=== PATIENT | female | born 1970 | race Caucasian/White ===

== ENCOUNTER 2020-06-19 16:14 | Observation (INO) | payer OTHER ==
[2020-06-19] MEDS ORDERED: Zofran 4 MG/2 ML VIAL IV ONE ×2 (16:26→18:15)
[2020-06-19] MEDS ORDERED: Sodium Chloride 0.9% 1000 ML 1,000 ML IV STA ×3 (16:26→18:45)
[2020-06-19] MEDS ORDERED: Sodium Chloride 0.9% 1000 ML 2,000 ML ONE (16:32)
[2020-06-19] MEDS ORDERED: Zofran 4 MG/2 ML VIAL ONE ×2 (16:32→18:16)
[2020-06-19 16:52] LABS: Absolute Neutrophil Ct (ANC) 2.31 (1.4-6.9); BASOPHIL % 0.3 % (0.0-0.4); Basophil (Absolute #) 0.01 (0-0.4); Eosinophil % 0.3 % (0.00-5.0); Eosinophil (Absolute #) 0.01 (0-0.5); Hemoglobin 14.4 gm/dl (12.0-16.0); Lymphocytes % 22.4 % (24.0-44.0); Mean Cell Volume 88.1 fl (78-100); Mean Corpuscular Hemoglobin 30.2 pg (26-32); Mean Corpuscular Hgb Concent. 34.3 g/dl (32-36); Mean Platelet Volume 10.1 fl (7.5-11.0); Monocyte (Absolute #) 0.44 (0.0-1.3); Monocytes % 12.3 % (0.0-12.0); Neutrophil % 64.7 % (36.0-66.0); Platelet Count 170 K/mm3 (150-450); Red Blood Count 4.77 M/mm3 (4.1-5.4); Red Cell Distribution Width 13.5 % (11.5-14.0); White Blood Count 3.6 K/mm3 (4.0-10.5)
--- NOTE | 2020-06-19 17:01 | XRAY ---
Indication: Short of breath. Suspect Covid 19. Comparison: September 20, 2014. Portable chest remains clear. Heart is not enlarged. Bony thorax intact. No new/acute findings.
[2020-06-19 17:06] LABS: ALBUMIN 4.5 g/dL (3.5-5.0); ALKALINE PHOSPHATASE 60 U/L (38-126); ANION GAP 13.9 MEQ/L (5-15); BLOOD UREA NITROGEN 12 mg/dL (7-17); CHLORIDE 97 mmol/L (98-107); Calcium 8.8 mg/dL (8.4-10.2); Carbon Dioxide 30 mmol/L (22-30); Creatinine 1 0.81 mg/dL (0.52-1.04); EST GLOMERULAR FILTRATION RATE > 60.0 ML/MIN; Glucose 105 mg/dL (74-106); Potassium 3.1 mmol/L (3.5-5.1); SGOT/AST 56 U/L (14-36); SGPT/ALT 74 U/L (0-35); SODIUM 137 mmol/L (137-145)
[2020-06-19] MEDS ORDERED: TORAdol 30 mg Injection IV ONE (17:16)
[2020-06-19] MEDS ORDERED: TORAdol 30 mg Injection ONE (17:20)
--- NOTE | 2020-06-19 17:46 | ERPHSYRPT ---
- History of Present Illness Source: patient Exam Limitations: no limitations Patient Subjective Stated Complaint: Diarrhea Triage Nursing Assessment: Patient ambulated back to ED and transferred self to bed. Patient COVID positive. Patient started showing symptoms on 06/14/2020 and was tested on 06/16/2020. Patient complains of body aches, headaches, fatigue, low grade temp, cough. Patient complains of constant aching pain to hayden lower legs and head 5/10. Patient complains of N/V and diarrhea. Lungs clear a/p hayden. patient denies SOB. Physician History: 49 yo wf who tested + for CV19 on 06/16/20 presents w N/V/D/mild nonproductive cough/fever/myalgias/arthralgias/BERMUDEZ. Pt denies CP/dysuria/hematuria/melena/hematochezia/ST. Timing/Duration: other (06/16/20) Cough Quality/Degree: mild, dry cough Possible Cause: no prior episodes Modifying Factors: Improves With: coughing Associated Symptoms: fever, chills, cough, headache, muscle aches, nasal congestion, nasal drainage, No chest pain/soreness, No dizziness, No earache, No facial pain, No lightheadedness, No shortness of breath, No sinus infection, No sore throat, No wheezing Allergies/Adverse Reactions: cefprozil [From Cefzil] Allergy (Verified 06/19/20 16:17) penicillin G Allergy (Verified 06/19/20 16:17) Penicillins Allergy (Verified 06/19/20 16:17) prochlorperazine [From Compazine] Allergy (Verified 06/19/20 16:17) prochlorperazine edisylate [From Compazine] Allergy (Verified 06/19/20 16:17) prochlorperazine maleate [From Compazine] Allergy (Verified 06/19/20 16:17) Sulfa (Sulfonamide Antibiotics) [Sulfa(Sulfonamide Antibiotics)] Allergy (Verified 06/19/20 16:17) Home Medications: Alprazolam 0.25 mg [xanAX 0.25 MG] 0.25 mg PO HS PRN PRN 09/20/14 [History] Aspirin 81 gm Chew [Baby Aspirin 81 mg Chew] 81 mg PO HS 09/20/14 [History] Omeprazole Magnesium [Prilosec Otc] 40 mg PO DAILY 09/20/14 [History] Nebivolol HCl [Bystolic] 10 mg PO HS 04/06/15 [History] Chlorthalidone 25 mg PO DAILY 06/19/20 [History] Famotidine [Pepcid AC] 40 mg PO HS 06/19/20 [History] Hx Tetanus, Diphtheria Vaccination/Date Given: Yes Hx Influenza Vaccination/Date Given: Yes Hx Pneumococcal Vaccination/Date Given: No Immunizations Up to Date: Yes Travel Risk - International Travel Have you traveled outside of the country in past 3 weeks: No - Coronavirus Screening Are you exhibiting any of the following symptoms?: Yes Symptoms: Fever, Cough: New Onset, Headaches/Body Aches/Fatigue Close contact with a COVID-19 positive Pt in past 14-21 Days: Yes - Review of Systems Constitutional: Fever, Chills, Fatigue, Lethargy, Weakness Eyes: No Symptoms Ears, Nose, & Throat: No Symptoms Respiratory: Cough, Dyspnea, Dyspnea on Exertion (BLACK[place]) Cardiac: No Symptoms Abdominal/Gastrointestinal: Nausea, Vomiting, Diarrhea, Appetite Changes, No Hematemesis, No Hematochezia, No Melena, No Dysphagia Genitourinary Symptoms: No Symptoms Musculoskeletal: No Symptoms, Arthralgias, Myalgias Skin: No Symptoms Neurological: No Symptoms, Headache Psychological: No Symptoms Endocrine: No Symptoms Hematologic/Lymphatic: No Symptoms Immunological/Allergic: No Symptoms - Past Medical History Pertinent Past Medical History: Yes Neurological History: No Pertinent History ENT History: No Pertinent History Cardiac History: Hypertension Respiratory History: No Pertinent History Endocrine Medical History: No Pertinent History Musculoskeletal History: No Pertinent History GI Medical History: Irritable Bowel History: No Pertinent History Psycho-Social History: No Pertinent History Female Reproductive Disorders: No Pertinent History - Past Surgical History Past Surgical History: Yes Neuro Surgical History: No Pertinent History Cardiac: No Pertinent History Respiratory: No Pertinent History Gastrointestinal: Cholecystectomy Musculoskeletal: No Pertinent History Female Surgical History: Section, Tubal Ligation, Other Other Surgical History: d/cx2, 2 groshong placement,leep procedure x2 - Social History Smoking Status: Never smoker Exposure to second hand smoke: No Drug Use: none Patient Lives Alone: No Significant Family History: no pertinent family hx - Nursing Vital Signs Nursing Vital Signs: Initial Vital Signs Temperature 98.6 F 06/19/20 16:21 Pulse Rate 101 H 06/19/20 16:21 Respiratory Rate 18 06/19/20 16:21 Blood Pressure 119/90 06/19/20 16:21 O2 Sat by Pulse Oximetry 96 06/19/20 16:21 Pain Scale Pain Intensity 3 - Physical Exam General Appearance: no apparent distress (Ill appearing) Eye Exam: PERRL/EOMI, eyes nml inspection Ears, Nose, Throat Exam: normal ENT inspection, TMs normal, pharynx normal, dry mucous membranes, pharyngeal erythema Neck Exam: normal inspection, supple, full range of motion, No meningismus, No mass, No Brudzinski, No Kernig's Respiratory Exam: normal breath sounds, lungs clear, airway intact, No r espiratory distress Cardiovascular Exam: tachycardia (Mild), No murmur Gastrointestinal/Abdomen Exam: soft, normal bowel sounds, No tenderness, No dis tention, No mass Back Exam: normal inspection, normal range of motion, No CVA tenderness Extremity Exam: normal inspection, normal range of motion Neurologic Exam: alert, oriented x 3, cooperative, stereo compiler II-XII nml as tested, n ormal mood/affect, nml station & gait, sensation nml, No motor deficits, No sensory deficit Skin Exam: normal color, warm, dry Lymphatic Exam: No adenopathy SpO2 Interpretation: normal SpO2: 97 O2 Delivery: Room Air - Course Nursing assessment & vital signs reviewed: Yes - Radiology Exams Chest X-ray Interpretation: Discussed w/ radiologist (NAD) Ordered Tests: Active Orders 24 hr Category Date Time Status IV Insertion STAT Care 06/19/20 16:26 Completed Clear Liquid Diet 06/20/20 Breakfast Active CHEST 1 VIEW (PORTABLE) Stat Exams 06/19/20 16:27 Completed CBC AM.LAB Lab 06/20/20 04:00 Ordered CBC W DIFF Stat Lab 06/19/20 16:30 Completed CMP AM.LAB Lab 06/20/20 04:00 Ordered CMP Stat Lab 06/19/20 16:30 Completed CULTURE,URINE Stat Lab 06/19/20 19:30 Received D-DIMER QUANTITATIVE AM.LAB Lab 06/20/20 04:00 Ordered D-DIMER QUANTITATIVE Stat Lab 06/19/20 16:35 Completed Lactic Acid Stat Lab 06/19/20 16:48 Completed UA W/RFX UR CULTURE Stat Lab 06/19/20 19:30 Completed Transfer Order Routine Transfer 06/19/20 Completed Medication Summary Generic Name Dose Route Start Last Admin Trade Name Rafi PRN Reason Stop Dose Admin Acetaminophen 500 mg 06/19/20 20:25 Tylenol Extra Strength 500 Mg PO 07/19/20 20:24 Q4HPRN PRN PAIN AND/OR FEVER Dexamethasone Sodium Phosphate 4 mg 06/19/20 22:00 Decadron 4 Mg Inj IV 07/19/20 21:59 BID JAXON Enoxaparin Sodium 60 mg 06/20/20 10:00 Enoxaparin Sodium SQ 07/20/20 09:59 DAILY JAXON Famotidine 20 mg 06/19/20 22:00 Pepcid 20 Mg Vial IV 07/19/20 21:59 Q12HT JAXON Potassium Chloride/Sodium Chloride 1,000 mls @ 150 mls/hr 06/19/20 20:30 Sodium Chloride 0.9% W/ 40 Meq Kcl 1000ml IV 07/19/20 20:29 .Q6H40M JAXON Remdesivir 100 mg/ Sodium 100 mls @ 100 mls/hr 06/20/20 22:00 Chloride IV 06/23/20 22:59 Q24H JAXON Remdesivir 200 mg/ Sodium 250 mls @ 125 mls/hr 06/19/20 22:00 Chloride IV 06/19/20 23:59 ONCE ONE Lorazepam 1 mg 06/19/20 20:27 Ativan 1 Mg PO 07/19/20 20:26 Q4H PRN PRN ANXIETY Ondansetron HCl 4 mg 06/19/20 20:29 Zofran 4 Mg/2 Ml Vial IV 07/19/20 20:25 Q4H PRN PRN NAUSEA/VOMITING Discontinued Medications Generic Name Dose Route Start Last Admin Trade Name Rafi PRN Reason Stop Dose Admin Dexamethasone Sodium Phosphate 10 mg 06/19/20 18:14 06/19/20 18:18 Decadron 10mg Inj. IV 06/19/20 18:15 10 mg STAT ONE Administration Dexamethasone Sodium Phosphate Confirm 06/19/20 18:17 Decadron 10mg Inj. Administered 06/19/20 18:18 Dose 10 mg .ROUTE .STK-MED ONE Sodium Chloride 1,000 mls @ 999 mls/hr 06/19/20 16:26 06/19/20 17:41 Sodium Chloride 0.9% 1000 Ml IV 06/19/20 17:26 Infused .Q1H1M STA Infusion Sodium Chloride 1,000 mls @ 999 mls/hr 06/19/20 16:28 06/19/20 17:41 Sodium Chloride 0.9% 1000 Ml IV 06/19/20 17:28 Infused .Q1H1M STA Infusion Sodium Chloride Confirm 06/19/20 16:32 Sodium Chloride 0.9% 1000 Ml Administered 06/19/20 16:33 Dose 2,000 mls @ ud .ROUTE .STK-MED ONE Sodium Chloride 1,000 mls @ 999 mls/hr 06/19/20 18:45 06/19/20 18:52 Sodium Chloride 0.9% 1000 Ml IV 06/19/20 19:45 999 mls/hr .Q1H1M STA Administration Sodium Chloride Confirm 06/19/20 18:50 Sodium Chloride 0.9% 1000 Ml Administered 06/19/20 18:51 Dose 1,000 mls @ ud .ROUTE .STK-MED ONE Sodium Chloride 1,000 mls @ 150 mls/hr 06/19/20 19:45 Sodium Chloride 0.9% 1000 Ml IV 07/19/20 19:44 .Q6H40M JAXON Remdesivir 100 mg/ Sodium 100 mls @ 100 mls/hr 06/19/20 19:45 Chloride IV 06/22/20 20:44 Q24H JAXON Remdesivir 200 mg/ Sodium 250 mls @ 125 mls/hr 06/19/20 19:34 Chloride IV 06/19/20 21:33 ONCE ONE Ketorolac Tromethamine 30 mg 06/19/20 17:16 06/19/20 17:21 Toradol 30 Mg Injection IV 06/19/20 17:17 30 mg STAT ONE Administration Ketorolac Tromethamine Confirm 06/19/20 17:20 Toradol 30 Mg Injection Administered 06/19/20 17:21 Dose 30 mg .ROUTE .STK-MED ONE Ondansetron HCl 4 mg 06/19/20 16:26 06/19/20 16:33 Zofran 4 Mg/2 Ml Vial IV 06/19/20 16:27 4 mg STAT ONE Administration Ondansetron HCl Confirm 06/19/20 16:32 Zofran 4 Mg/2 Ml Vial Administered 06/19/20 16:33 Dose 4 mg .ROUTE .STK-MED ONE Ondansetron HCl 4 mg 06/19/20 18:15 06/19/20 18:18 Zofran 4 Mg/2 Ml Vial IV 06/19/20 18:16 4 mg STAT ONE Administration Ondansetron HCl Confirm 06/19/20 18:16 Zofran 4 Mg/2 Ml Vial Administered 06/19/20 18:17 Dose 4 mg .ROUTE .STK-MED ONE Ondansetron HCl 4 mg 06/19/20 19:31 Zofran 4 Mg/2 Ml Vial IV 07/19/20 19:30 Q6H PRN PRN NAUSEA/VOMITING Lab/Rad Data: Laboratory Result Diagrams 06/19/20 16:30 06/19/20 16:30 Laboratory Results 06/19/20 06/19/20 06/19/20 Range/Units 19:30 16:48 16:35 WBC (4.0-10.5) K/mm3 RBC (4.1-5.4) M/mm3 Hgb (12.0-16.0) gm/dl Hct (35-47) % MCV (78-100) fl MCH (26-32) pg MCHC (32-36) g/dl RDW (11.5-14.0) % Plt Count (150-450) K/mm3 MPV (7.5-11.0) fl Gran % (36.0-66.0) % Eos # (Auto) (0-0.5) Absolute Lymphs (auto) (1.0-4.6) Absolute Monos (auto) (0.0-1.3) Lymphocytes % (24.0-44.0) % Monocytes % (0.0-12.0) % Eosinophils % (0.00-5.0) % Basophils % (0.0-0.4) % Absolute Granulocytes (1.4-6.9) Basophils # (0-0.4) D-Dimer 541 H* (215-500) ng/mL Sodium (137-145) mmol/L Potassium (3.5-5.1) mmol/L Chloride (98-107) mmol/L Carbon Dioxide (22-30) mmol/L Anion Gap (5-15) MEQ/L BUN (7-17) mg/dL Creatinine (0.52-1.04) mg/dL Estimated GFR ML/MIN Glucose (74-106) mg/dL Lactic Acid 1.5 (0.4-2.0) Calcium (8.4-10.2) mg/dL Total Bilirubin (0.2-1.3) mg/dL AST (14-36) U/L ALT (0-35) U/L Alkaline Phosphatase (38-126) U/L Serum Total Protein (6.3-8.2) g/dL Albumin (3.5-5.0) g/dL Urine Color YELLOW (YELLOW) Urine Appearance SLIGHTLY CLOUDY (CLEAR) Urine pH 5.0 (5-6) Ur Specific [place] 1.024 (1.005-1.025) Urine Protein 30 (Negative) Urine Ketones SMALL (NEGATIVE) Urine Blood NEGATIVE (0-5) Tray/ul Urine Nitrite NEGATIVE (NEGATIVE) Urine Bilirubin NEGATIVE (NEGATIVE) Urine Urobilinogen NEGATIVE (0-1) mg/dL Ur Leukocyte Esterase NEGATIVE (NEGATIVE) Urine WBC (Auto) 3-5 (0-5) /HPF Urine RBC (Auto) NONE (0-2) /HPF U Epithel Cells (Auto) RARE (FEW) /HPF Urine Bacteria (Auto) FEW (NEGATIVE) /HPF Urine Mucus (Auto) SLIGHT (NEGATIVE) /HPF Urine Culture Reflexed YES (NO) Urine Glucose NEGATIVE (NEGATIVE) mg/dL 06/19/20 06/19/20 Range/Units 16:30 16:30 WBC 3.6 L (4.0-10.5) K/mm3 RBC 4.77 (4.1-5.4) M/mm3 Hgb 14.4 (12.0-16.0) gm/dl Hct 42.0 (35-47) % MCV 88.1 (78-100) fl MCH 30.2 (26-32) pg MCHC 34.3 (32-36) g/dl RDW 13.5 (11.5-14.0) % Plt Count 170 (150-450) K/mm3 MPV 10.1 (7.5-11.0) fl Gran % 64.7 (36.0-66.0) % Eos # (Auto) 0.01 (0-0.5) Absolute Lymphs (auto) 0.80 L (1.0-4.6) Absolute Monos (auto) 0.44 (0.0-1.3) Lymphocytes % 22.4 L (24.0-44.0) % Monocytes % 12.3 H (0.0-12.0) % Eosinophils % 0.3 (0.00-5.0) % Basophils % 0.3 (0.0-0.4) % Absolute Granulocytes 2.31 (1.4-6.9) Basophils # 0.01 (0-0.4) D-Dimer (215-500) ng/mL Sodium 137 (137-145) mmol/L Potassium 3.1 L (3.5-5.1) mmol/L Chloride 97 L (98-107) mmol/L Carbon Dioxide 30 (22-30) mmol/L Anion Gap 13.9 (5-15) MEQ/L BUN 12 (7-17) mg/dL Creatinine 0.81 (0.52-1.04) mg/dL Estimated GFR > 60.0 ML/MIN Glucose 105 (74-106) mg/dL Lactic Acid (0.4-2.0) Calcium 8.8 (8.4-10.2) mg/dL Total Bilirubin 0.60 (0.2-1.3) mg/dL AST 56 H (14-36) U/L ALT 74 H (0-35) U/L Alkaline Phosphatase 60 (38-126) U/L Serum Total Protein 8.0 (6.3-8.2) g/dL Albumin 4.5 (3.5-5.0) g/dL Urine Color (YELLOW) Urine Appearance (CLEAR) Urine pH (5-6) Ur Specific [place] (1.005-1.025) Urine Protein (Negative) Urine Ketones (NEGATIVE) Urine Blood (0-5) Tray/ul Urine Nitrite (NEGATIVE) Urine Bilirubin (NEGATIVE) Urine Urobilinogen (0-1) mg/dL Ur Leukocyte Esterase (NEGATIVE) Urine WBC (Auto) (0-5) /HPF Urine RBC (Auto) (0-2) /HPF U Epithel Cells (Auto) (FEW) /HPF Urine Bacteria (Auto) (NEGATIVE) /HPF Urine Mucus (Auto) (NEGATIVE) /HPF Urine Culture Reflexed (NO) Urine Glucose (NEGATIVE) mg/dL - Progress Progress: unchanged Progress Note: 06/19/20 19:[address] Mathew 06/19/20 20:40 3L NS bolus/4mg IV Zofran x2/10mg IV Decadron Pt w minimal improvement w tx and still unable to hold down sig fluids, so admitted per Dr. Mathew Discussed with Dr.: Other (Priyanka) Will see patient in: hospital (observation) - Departure Departure Disposition: Observation Clinical Impression: COVID-19 Condition: Stable Critical Care Time: No
[2020-06-19] MEDS ORDERED: DECADRON 10MG INJ. IV ONE (18:14)
[2020-06-19] MEDS ORDERED: DECADRON 10MG INJ. ONE (18:17)
[2020-06-19] MEDS ORDERED: Sodium Chloride 0.9% 1000 ML 1,000 ML ONE (18:50)
[2020-06-19] MEDS ORDERED: Zofran 4 MG/2 ML VIAL IV PRN (19:31)
[2020-06-19] MEDS ORDERED: REMDESIVIR 200 MG in Sodium Chloride 0.9% 250 ML 250 ML IV ONE ×2 (19:34→22:00)
[2020-06-19 19:44] LABS: Appearance SLIGHTLY CLOUDY (CLEAR); Bacteria FEW /HPF (NEGATIVE); Bilirubin NEGATIVE (NEGATIVE); Blood NEGATIVE Ery/ul (0-5); Epithelial Cells RARE /HPF (FEW); Glucose NEGATIVE (NEGATIVE); Ketones SMALL (NEGATIVE); Leukocyte Esterase NEGATIVE (NEGATIVE); Mucus SLIGHT /HPF (NEGATIVE); Nitrite NEGATIVE (NEGATIVE); Protein,Urine Dip 30 (Negative); Specific Gravity 1.024 (1.005-1.025); Urobilinogen NEGATIVE mg/dL (0-1)
[2020-06-19] MEDS ORDERED: Sodium Chloride 0.9% 1000 ML 1,000 ML IV SCH (19:45)
[2020-06-19] MEDS ORDERED: REMDESIVIR 100 MG in Sodium Chloride 0.9% 100 ML IVPB 100 ML IV SCH (19:45)
[2020-06-19] MEDS ORDERED: TYLENOL EXTRA STRENGTH 500 MG PO PRN (20:25)
[2020-06-19] MEDS ORDERED: Ativan 1 MG PO PRN (20:27)
[2020-06-19] MEDS ORDERED: Sodium Chloride 0.9% 250 ML 250 ML IV ONE (20:40)
[2020-06-19] MEDS ORDERED: REMDESIVIR IV ONE (20:41)
[2020-06-19] MEDS ORDERED: POTASSIUM CHLORIDE 20 mEq IN WATER 100ML 20 MEQ/100 ML BAG IV SCH (20:45)
[2020-06-19] MEDS: SODIUM CHLORIDE 0.9% W/ 40 mEq KCL 1000ML 1,000 ML IV SCH (20:51)
[2020-06-19] MEDS: Decadron 4 MG INJ IV SCH ×2 (22:39→23:10)
[2020-06-19] MEDS: Pepcid 20 MG VIAL IV SCH (22:39)
[2020-06-20] MEDS: SODIUM CHLORIDE 0.9% W/ 40 mEq KCL 1000ML 1,000 ML IV SCH (05:31)
[2020-06-20] MEDS: Zofran 4 MG/2 ML VIAL IV PRN ×2 (05:32→09:16)
[2020-06-20 06:39] LABS: Hematocrit 34.6 % (35-47); Hemoglobin 11.9 gm/dl (12.0-16.0); Mean Cell Volume 89.9 fl (78-100); Mean Corpuscular Hemoglobin 30.9 pg (26-32); Mean Corpuscular Hgb Concent. 34.4 g/dl (32-36); Mean Platelet Volume 10.2 fl (7.5-11.0); Platelet Count 139 K/mm3 (150-450); Red Blood Count 3.85 M/mm3 (4.1-5.4); Red Cell Distribution Width 13.1 % (11.5-14.0); White Blood Count 2.2 K/mm3 (4.0-10.5)
[2020-06-20 06:49] LABS: INR 1.21 (0.8-3.0); PROTIME 13.7 SECONDS (9.95-12.35)
[2020-06-20 06:52] LABS: ALBUMIN 3.4 g/dL (3.5-5.0); ALKALINE PHOSPHATASE 37 U/L (38-126); ANION GAP 10.8 MEQ/L (5-15); BLOOD UREA NITROGEN 10 mg/dL (7-17); CHLORIDE 106 mmol/L (98-107); Calcium 7.1 mg/dL (8.4-10.2); Carbon Dioxide 24 mmol/L (22-30); Creatinine 1 0.63 mg/dL (0.52-1.04); EST GLOMERULAR FILTRATION RATE > 60.0 ML/MIN; Glucose 124 mg/dL (74-106); Potassium 3.7 mmol/L (3.5-5.1); SGOT/AST 34 U/L (14-36); SGPT/ALT 48 U/L (0-35); SODIUM 138 mmol/L (137-145); Total Protein 6.1 g/dL (6.3-8.2)
[2020-06-20] MEDS: Sodium Chloride 0.9% W/ 20 mEq KCl/LITER 1,000 ML IV SCH ×2 (10:12→20:00)
[2020-06-20] MEDS: ENOXAPARIN SODIUM SQ SCH (10:12)
[2020-06-20] MEDS: Pepcid 20 MG VIAL IV SCH (10:12)
[2020-06-20] MEDS: Decadron 4 MG INJ IV SCH ×2 (10:12→21:34)
[2020-06-20] MEDS ORDERED: xanAX 0.25 MG PO PRN (10:18)
[2020-06-20] MEDS: Tussionex Pennkinetic Susp PO SCH ×2 (11:30→21:34)
[2020-06-20] MEDS: NEURONTIN 300 MG PO SCH ×2 (11:30→21:34)
[2020-06-20] MEDS: NON-FORMULARY ITEM PO SCH (11:31)
--- NOTE | 2020-06-20 15:06 | HP ---
CHIEF COMPLAINT: Abdominal pain, vomiting, diarrhea, nausea. COVID positive since 06/16/2020. HISTORY OF PRESENT ILLNESS: The patient stated she started feeling bad on 06/14/2020 and was tested on 06/16/2020. 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 She complained of body aches, headaches, fatigue, low grade fever, sweats and chills, aching of the legs and hand 5 over 10. Today, she vomited twice and had several bouts of diarrhea. MEDICATIONS: Xanax 0.25 h.s. PRN, aspirin 81 q.d., Prilosec 20 q.d., Bystolic 10 q.d. ALLERGIES: PENICILLIN. COMPAZINE. PHENERGAN (RESTLESS LEGS). SULFA. PAST MEDICAL HISTORY: Hypertension. PAST SURGICAL HISTORY: Cholecystectomy. Two sections. REVIEW OF SYSTEMS: HEENT: No problems hearing or seeing. Denies change in taste. CONSTITUTIONAL: No fever or chills. Fatigue, leg aches, lethargy, weakness. RESPIRATORY: Frequent cough, not short of breath. CVS: No chest pain or shortness of breath. ABDOMEN: Cramping, nausea, aching, vomiting. : No problems urinating but has not urinated much today. MUSCULOSKELETAL: Aching all over especially the legs. NEUROLOGIC: No problems except for headaches. No neuropathy. ENDOCRINE: No diabetes. No hyperlipidemia. PHYSICAL EXAMINATION: The patient is alert, orientated, looks worn out, tired and dehydrated. VITAL SIGNS: Temperature 98F, pulse 100, respirations 18, blood pressure 125/80. O2 saturation on room air 96%. HEENT: Pupils equal and reactive to light. Dry mucosal membranes. NECK: Supple without adenopathy. CHEST: Clear. CVS: No murmurs or gallops. ABDOMEN: Distended. No tenderness. Normal bowel sounds. EXTREMITIES: Fair pulses. No edema. IMPRESSION: The patient is COVID positive now for fourth day with dehydration probably close to 10%, hypokalemia. PLAN: The patient will be started on IV fluids with potassium replacement, nausea medication, pain medication, Decadron and Remdesivir. PROGNOSIS: Good.
[2020-06-20] MEDS: REMDESIVIR 100 MG in Sodium Chloride 0.9% 100 ML IVPB 100 ML IV SCH (16:20)
[2020-06-20] MEDS ORDERED: Pepcid 20 MG PO SCH (22:00)
[2020-06-20] MEDS ORDERED: Bystolic 5 MG PO SCH (22:00)
[2020-06-20] MEDS ORDERED: Protonix 40MG Tablet PO SCH (22:00)
[2020-06-20] MEDS ORDERED: Ativan 1 MG PO SCH (22:00)
[2020-06-20] MEDS ORDERED: OMEPRAZOLE MAGNESIUM 40 MG PO SCH (22:00)
[2020-06-21] MEDS: Sodium Chloride 0.9% W/ 20 mEq KCl/LITER 1,000 ML IV SCH (05:35)
[2020-06-21 06:09] LABS: ALBUMIN 3.2 g/dL (3.5-5.0); ALKALINE PHOSPHATASE 35 U/L (38-126); ANION GAP 8.8 MEQ/L (5-15); BLOOD UREA NITROGEN 9 mg/dL (7-17); CHLORIDE 106 mmol/L (98-107); Calcium 7.4 mg/dL (8.4-10.2); Carbon Dioxide 25 mmol/L (22-30); Creatinine 1 0.58 mg/dL (0.52-1.04); EST GLOMERULAR FILTRATION RATE > 60.0 ML/MIN; Glucose 130 mg/dL (74-106); Potassium 3.8 mmol/L (3.5-5.1); SGOT/AST 40 U/L (14-36); SGPT/ALT 42 U/L (0-35); SODIUM 136 mmol/L (137-145)
[2020-06-21 06:34] LABS: INR 1.28 (0.8-3.0); PROTIME 14.5 SECONDS (9.95-12.35)
[2020-06-21] MEDS: Zofran 4 MG/2 ML VIAL IV PRN ×2 (08:39→17:53)
[2020-06-21] MEDS ORDERED: NON-FORMULARY ITEM (Chlorthalidone [Chlorthalidone] 25 MG) PO SCH (10:00)
[2020-06-21] MEDS: Decadron 4 MG INJ IV SCH (10:22)
[2020-06-21] MEDS: NON-FORMULARY ITEM PO SCH (10:24)
[2020-06-21] MEDS: NEURONTIN 300 MG PO SCH (11:08)
[2020-06-21] MEDS: Tussionex Pennkinetic Susp PO SCH (11:08)
[2020-06-21] MEDS: ENOXAPARIN SODIUM SQ SCH (11:09)
[2020-06-21] MEDS ORDERED: QUESTRAN Light 4 GM Packet PO SCH (12:00)
[2020-06-21] MEDS: REMDESIVIR 100 MG in Sodium Chloride 0.9% 100 ML IVPB 100 ML IV SCH (16:29)
[2020-06-21 17:42] VITALS: BP 133/79; O2SAT 93
[2020-06-21 17:47] VITALS: PULSE 81
== END 2020-06-21 18:57 | disposition home or self-care (01) ==
LOC: ED 16:14 → MED SURG 19:59
PROVIDERS: ADMIT Family Medicine; ATTEND Family Medicine
DX: U07.1 COVID-19 (principal); K52.9 Noninfective gastroenteritis and colitis, unspecified; E86.0 Dehydration; R51.9 Headache, unspecified; R53.83 Other fatigue; Z79.899 Other long term (current) drug therapy; I10 Essential (primary) hypertension; E87.6 Hypokalemia
CPT/HCPCS: 36000; 36415; 71045; 80053; 81001; 83605; 85025; 85027; 85379; 85610; 87086; 93268; 94762; 96360; 96361; 96374; 96375; 96376; 99285; G0378; J1100; J1650; J1885; J2405; A9270-GY

== ENCOUNTER 2021-06-05 13:59 | Emergency (ER) | payer OTHER ==
[2021-06-05] MEDS: HYDROCODONE-ACETAMIN 2.5-108/5 ML SOLUTION PO STA (14:00)
[2021-06-05] MEDS ORDERED: Zofran 4 MG/2 ML VIAL ONE (14:24)
[2021-06-05] MEDS ORDERED: solu-MEDROL ONE (14:24)
[2021-06-05] MEDS ORDERED: Sodium Chloride 0.9% 1000 ML 1,000 ML ONE (14:24)
[2021-06-05] MEDS ORDERED: HYDROCODONE-ACETAMIN 2.5-108/5 ML SOLUTION ONE (14:24)
[2021-06-05] MEDS: Zofran 4 MG/2 ML VIAL IV ONE (14:32)
[2021-06-05] MEDS: solu-MEDROL 125 MG, Sterile H2O 10 ml 2 ML IV ONE ×2 (14:32)
[2021-06-05] MEDS: Sodium Chloride 0.9% 1000 ML 1,000 ML IV STA (14:32)
[2021-06-05 14:43] LABS: Absolute Neutrophil Ct (ANC) 11.84 (1.4-6.9); BASOPHIL % 0.1 % (0.0-0.4); Basophil (Absolute #) 0.02 (0-0.4); Eosinophil % 0.1 % (0.00-5.0); Eosinophil (Absolute #) 0.01 (0-0.5); Hematocrit 41.6 % (35-47); Hemoglobin 14.1 gm/dl (12.0-16.0); Lymphocyte (Absolute #) 0.71 (1.0-4.6); Lymphocytes % 5.3 % (24.0-44.0); Mean Cell Volume 87.6 fl (78-100); Mean Corpuscular Hemoglobin 29.7 pg (26-32); Mean Corpuscular Hgb Concent. 33.9 g/dl (32-36); Mean Platelet Volume 10.4 fl (7.5-11.0); Monocyte (Absolute #) 0.91 (0.0-1.3); Monocytes % 6.7 % (0.0-12.0); Neutrophil % 87.8 % (36.0-66.0); Platelet Count 211 K/mm3 (150-450); Red Blood Count 4.75 M/mm3 (4.1-5.4); Red Cell Distribution Width 13.4 % (11.5-14.0); White Blood Count 13.5 K/mm3 (4.0-10.5)
[2021-06-05 14:51] LABS: Appearance CLOUDY (CLEAR); Bacteria FEW /HPF (NEGATIVE); Bilirubin SMALL (NEGATIVE); Blood MODERATE Ery/ul (0-5); Epithelial Cells RARE /HPF (FEW); Glucose 50 mg/dL (NEGATIVE); Ketones SMALL (NEGATIVE); Leukocyte Esterase NEGATIVE (NEGATIVE); Mucus SLIGHT /HPF (NEGATIVE); Nitrite NEGATIVE (NEGATIVE); Protein,Urine Dip 100 (Negative); Specific Gravity 1.031 (1.005-1.025); Urobilinogen 4 mg/dL (0-1)
--- NOTE | 2021-06-05 14:53 | XRAY ---
Indication: Fever and cough. Comparison: June 19, 2020. Portable chest demonstrates new right lower lung airspace disease without consolidation/large effusion. Remaining heart, left lung, and bony thorax normal..
[2021-06-05 14:57] LABS: ALBUMIN 4.1 g/dL (3.5-5.0); ALKALINE PHOSPHATASE 83 U/L (38-126); BLOOD UREA NITROGEN 12 mg/dL (7-17); CHLORIDE 100 mmol/L (98-107); Calcium 8.9 mg/dL (8.4-10.2); Carbon Dioxide 27 mmol/L (22-30); Creatinine 1 0.94 mg/dL (0.52-1.04); EST GLOMERULAR FILTRATION RATE > 60.0 ML/MIN; Glucose 112 mg/dL (74-106); MAGNESIUM 1.7 mg/dL (1.6-2.3); Potassium 3.6 mmol/L (3.5-5.1); SGOT/AST 40 U/L (14-36); SGPT/ALT 44 U/L (0-35); SODIUM 138 mmol/L (137-145); Total Protein 7.1 g/dL (6.3-8.2)
--- NOTE | 2021-06-05 15:07 | ERPHSYRPT ---
- History of Present Illness Time Seen by Provider: 06/05/21 14:36 Source: patient Exam Limitations: no limitations Patient Subjective Stated Complaint: Pt states "I have been coughing and had horrible body aches since the and I have taken tesselon pearls and tussenex and nothing is working. I am coughing so much my head is killing me and I am vomiting. I cannot take it anymore." Triage Nursing Assessment: PT presented alert and oriented X 3, skin pwd. Pt ambulates with an upright steady gait, able to speak in clear full sentences pt has persistant cough. PT cannot stop coughing. Physician History: 50 years old female presented in the ER with chief complaint of almost 2-week history of dry cough, congestion, generalized body ache fatigue and tiredness. She has tried multiple medication with no relief. Having coughing spells without shortness of breath. Has negative COVID-19 done twice. Subjective f eeling of fever and chills. Denies any chest pain but soreness because of repeated coughing. Timing/Duration: day(s) (12), constant, gradual onset, worse Cough Quality/Degree: severe, dry cough Possible Cause: unknown cause Modifying Factors: Worsens With: coughing Associated Symptoms: fever, chills, chest pain/soreness, cough, headache, muscle aches, sore throat, No shortness of breath Allergies/Adverse Reactions: prochlorperazine edisylate [From Compazine] Allergy (Severe, Verified 06/19/20 21:48) Tardive Dyskinesia cefprozil [From Cefzil] Allergy (Mild, Verified 06/19/20 21:48) Hives penicillin G Allergy (Mild, Verified 06/19/20 21:48) Hives Sulfa (Sulfonamide Antibiotics) [Sulfa(Sulfonamide Antibiotics)] Allergy (Mild, Verified 06/19/20 21:48) Hives Penicillins Allergy (Verified 06/19/20 16:17) prochlorperazine [From Compazine] Allergy (Verified 06/19/20 16:17) prochlorperazine maleate [From Compazine] Allergy (Verified 06/19/20 16:17) Home Medications: ALPRAZolam 0.25 MG [xanAX 0.25 MG] 0.25 mg PO HS PRN PRN 09/20/14 [History] Aspirin 81 gm Chew [Baby Aspirin 81 mg Chew] 81 mg PO HS 09/20/14 [History] Omeprazole Magnesium [Prilosec Otc] 40 mg PO HS 09/20/14 [History] Nebivolol HCl [Bystolic] 10 mg PO HS 04/06/15 [History] Chlorthalidone 25 mg PO DAILY 06/19/20 [History] Famotidine [Pepcid AC] 40 mg PO HS 06/19/20 [History] Hx Tetanus, Diphtheria Vaccination/Date Given: Yes Hx Influenza Vaccination/Date Given: Yes Hx Pneumococcal Vaccination/Date Given: No Immunizations Up to Date: Yes Travel Risk - International Travel Have you traveled outside of the country in past 3 weeks: No - Coronavirus Screening Are you exhibiting any of the following symptoms?: Yes Symptoms: Fever, Cough: New Onset, Shortness of Breath, Vomiting/Diarrhea, Headaches/Body Aches/Fatigue - Vaccine Status Have you recieved a Covid-19 vaccination: Yes 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[employer]: [employer] - Vaccination Dates Date of 2cond Vaccination (if applicable): 09/2020 - Review of Systems Constitutional: Fever, Chills, Fatigue, Weakness Eyes: No Symptoms Ears, Nose, & Throat: Throat Swelling Respiratory: Cough, Wheezing Cardiac: No Symptoms Abdominal/Gastrointestinal: Nausea Genitourinary Symptoms: No Symptoms Musculoskeletal: Myalgias Skin: No Symptoms Neurological: Headache Psychological: No Symptoms Endocrine: No Symptoms Hematologic/Lymphatic: No Symptoms Immunological/Allergic: No Symptoms - Past Medical History Pertinent Past Medical History: Yes Neurological History: No Pertinent History ENT History: No Pertinent History Cardiac History: Hypertension Respiratory History: No Pertinent History Endocrine Medical History: No Pertinent History Musculoskeletal History: No Pertinent History GI Medical History: Irritable Bowel History: No Pertinent History Psycho-Social History: No Pertinent History Female Reproductive Disorders: No Pertinent History - Past Surgical History Past Surgical History: Yes Neuro Surgical History: No Pertinent History Cardiac: No Pertinent History Respiratory: No Pertinent History Gastrointestinal: Cholecystectomy Musculoskeletal: No Pertinent History Female Surgical History: Section, Tubal Ligation, Other Other Surgical History: d/cx2, 2 groshong placement,leep procedure x2 - Social History Smoking Status: Never smoker Exposure to second hand smoke: No Drug Use: none Patient Lives Alone: No Significant Family History: no pertinent family hx - Female History Hx Last Menstrual Period: no more Hx Now: No - Nursing Vital Signs Nursing Vital Signs: Initial Vital Signs Temperature 99.3 F 06/05/21 14:06 Pulse Rate 115 H 06/05/21 14:06 Respiratory Rate 26 H 06/05/21 14:06 Blood Pressure 130/86 06/05/21 14:06 O2 Sat by Pulse Oximetry 95 06/05/21 14:06 Pain Scale Pain Intensity 4 - Physical Exam General Appearance: no apparent distress, alert Eye Exam: PERRL/EOMI, eyes nml inspection Ears, Nose, Throat Exam: normal ENT inspection, pharynx normal Neck Exam: normal inspection, non-tender, supple, full range of motion Respiratory Exam: wheezing, No respiratory distress, No accessory muscle use Cardiovascular Exam: normal heart sounds, tachycardia Gastrointestinal/Abdomen Exam: soft, normal bowel sounds Back Exam: normal inspection, normal range of motion Extremity Exam: normal inspection, normal range of motion Neurologic Exam: alert, oriented x 3, cooperative, 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 Skin Exam: normal color SpO2 Interpretation: normal SpO2: 96 O2 Delivery: Room Air Ordered Tests: Active Orders 24 hr Category Date Time Status IV Insertion STAT Care 06/05/21 14:21 Active Pulse Oximetry (ED) STAT Care 06/05/21 14:27 Active CHEST 1 VIEW (PORTABLE) Stat Exams 06/05/21 14:29 Completed BLOOD CULTURE Stat Lab 06/05/21 15:05 Received CBC W DIFF Stat Lab 06/05/21 14:20 Completed CMP Stat Lab 06/05/21 14:20 Completed CULTURE,URINE Stat Lab 06/05/21 14:30 Received Lactic Acid Stat Lab 06/05/21 14:27 Completed MAGNESIUM Stat Lab 06/05/21 14:20 Completed UA W/RFX UR CULTURE Stat Lab 06/05/21 14:30 Completed Medication Summary Discontinued Medications Generic Name Dose Route Start Last Admin Trade Name Freq PRN Reason Stop Dose Admin Hydrocodone Bitart/Acetaminophen Confirm 06/05/21 14:24 Hydrocodone/Acetaminophen 5 Ml Udcup Administered 06/05/21 14:25 Dose 15 ml .ROUTE .STK-MED ONE Hydrocodone Bitart/Acetaminophen 15 ml 06/05/21 14:56 06/05/21 14:00 Hydrocodone/Acetaminophen 5 Ml Udcup PO 12/21/21 14:57 15 ml STAT STA Administration Methylprednisolone Sodium 0 mg 06/05/21 14:22 06/05/21 14:32 Succinate 125 mg/ Sterile IV 06/05/21 14:23 125 mg Water 2 ml STAT ONE Administration Sodium Chloride 1,000 mls @ 999 mls/hr 06/05/21 14:22 06/05/21 15:34 Sodium Chloride 0.9% 1000 Ml IV 06/05/21 15:22 Infused .Q1H1M STA Infusion Sodium Chloride Confirm 06/05/21 14:24 Sodium Chloride 0.9% 1000 Ml Administered 06/05/21 14:25 Dose 1,000 mls @ ud .ROUTE .STK-MED ONE Levofloxacin 500 mg 06/05/21 15:50 06/05/21 15:53 Levofloxacin 250 Mg Tab PO 06/05/21 15:51 500 mg STAT ONE Administration Levofloxacin Confirm 06/05/21 15:52 Levofloxacin 250 Mg Tab Administered 06/05/21 15:53 Dose 500 mg .ROUTE .STK-MED ONE Methylprednisolone Sodium Succinate Confirm 06/05/21 14:24 Methylprednis Sod Succ 125 Mg/2 Ml Vial Administered 06/05/21 14:25 Dose 125 mg .ROUTE .STK-MED ONE Ondansetron HCl 4 mg 06/05/21 14:21 06/05/21 14:32 Ondansetron Hcl 4 Mg/2 Ml Vial IV 06/05/21 14:22 4 mg STAT ONE Administration Ondansetron HCl Confirm 06/05/21 14:24 Ondansetron Hcl 4 Mg/2 Ml Vial Administered 06/05/21 14:25 Dose 4 mg .ROUTE .STK-MED ONE Lab/Rad Data: Laboratory Result Diagrams 06/05/21 14:20 06/05/21 14:20 Laboratory Results 06/05/21 06/05/21 06/05/21 Range/Units 14:30 14:27 14:20 WBC (4.0-10.5) K/mm3 RBC (4.1-5.4) M/mm3 Hgb (12.0-16.0) gm/dl Hct (35-47) % MCV (78-100) fl MCH (26-32) pg MCHC (32-36) g/dl RDW (11.5-14.0) % Plt Count (150-450) K/mm3 MPV (7.5-11.0) fl Gran % (36.0-66.0) % Eos # (Auto) (0-0.5) Absolute Lymphs (auto) (1.0-4.6) Absolute Monos (auto) (0.0-1.3) Lymphocytes % (24.0-44.0) % Monocytes % (0.0-12.0) % Eosinophils % (0.00-5.0) % Basophils % (0.0-0.4) % Absolute Granulocytes (1.4-6.9) Basophils # (0-0.4) Sodium 138 (137-145) mmol/L Potassium 3.6 (3.5-5.1) mmol/L Chloride 100 (98-107) mmol/L Carbon Dioxide 27 (22-30) mmol/L Anion Gap 15.0 (5-15) MEQ/L BUN 12 (7-17) mg/dL Creatinine 0.94 (0.52-1.04) mg/dL Estimated GFR > 60.0 ML/MIN Glucose 112 H (74-106) mg/dL Lactic Acid 2.9 H (0.4-2.0) Calcium 8.9 (8.4-10.2) mg/dL Magnesium 1.7 (1.6-2.3) mg/dL Total Bilirubin 2.30 H (0.2-1.3) mg/dL AST 40 H (14-36) U/L ALT 44 H (0-35) U/L Alkaline Phosphatase 83 (38-126) U/L Serum Total Protein 7.1 (6.3-8.2) g/dL Albumin 4.1 (3.5-5.0) g/dL Urine Color QUAN (YELLOW) Urine Appearance CLOUDY (CLEAR) Urine pH 5.0 (5-6) Ur Specific Dyer 1.031 (1.005-1.025) Urine Protein 100 (Negative) Urine Ketones SMALL (NEGATIVE) Urine Blood MODERATE (0-5) Tray/ul Urine Nitrite NEGATIVE (NEGATIVE) Urine Bilirubin SMALL (NEGATIVE) Urine Urobilinogen 4 (0-1) mg/dL Ur Leukocyte Esterase NEGATIVE (NEGATIVE) Urine WBC (Auto) 6-10 (0-5) /HPF Urine RBC (Auto) 6-10 (0-2) /HPF U Epithel Cells (Auto) RARE (FEW) /HPF Urine Bacteria (Auto) FEW (NEGATIVE) /HPF Urine Mucus (Auto) SLIGHT (NEGATIVE) /HPF Urine Culture Reflexed YES (NO) Urine Glucose 50 (NEGATIVE) mg/dL 06/05/21 Range/Units 14:20 WBC 13.5 H (4.0-10.5) K/mm3 RBC 4.75 (4.1-5.4) M/mm3 Hgb 14.1 (12.0-16.0) gm/dl Hct 41.6 (35-47) % MCV 87.6 (78-100) fl MCH 29.7 (26-32) pg MCHC 33.9 (32-36) g/dl RDW 13.4 (11.5-14.0) % Plt Count 211 (150-450) K/mm3 MPV 10.4 (7.5-11.0) fl Gran % 87.8 H (36.0-66.0) % Eos # (Auto) 0.01 (0-0.5) Absolute Lymphs (auto) 0.71 L (1.0-4.6) Absolute Monos (auto) 0.91 (0.0-1.3) Lymphocytes % 5.3 L (24.0-44.0) % Monocytes % 6.7 (0.0-12.0) % Eosinophils % 0.1 (0.00-5.0) % Basophils % 0.1 (0.0-0.4) % Absolute Granulocytes 11.84 H (1.4-6.9) Basophils # 0.02 (0-0.4) Sodium (137-145) mmol/L Potassium (3.5-5.1) mmol/L Chloride (98-107) mmol/L Carbon Dioxide (22-30) mmol/L Anion Gap (5-15) MEQ/L BUN (7-17) mg/dL Creatinine (0.52-1.04) mg/dL Estimated GFR ML/MIN Glucose (74-106) mg/dL Lactic Acid (0.4-2.0) Calcium (8.4-10.2) mg/dL Magnesium (1.6-2.3) mg/dL Total Bilirubin (0.2-1.3) mg/dL AST (14-36) U/L ALT (0-35) U/L Alkaline Phosphatase (38-126) U/L Serum Total Protein (6.3-8.2) g/dL Albumin (3.5-5.0) g/dL Urine Color (YELLOW) Urine Appearance (CLEAR) Urine pH (5-6) Ur Specific Dyer (1.005-1.025) Urine Protein (Negative) Urine Ketones (NEGATIVE) Urine Blood (0-5) Tray/ul Urine Nitrite (NEGATIVE) Urine Bilirubin (NEGATIVE) Urine Urobilinogen (0-1) mg/dL Ur Leukocyte Esterase (NEGATIVE) Urine WBC (Auto) (0-5) /HPF Urine RBC (Auto) (0-2) /HPF U Epithel Cells (Auto) (FEW) /HPF Urine Bacteria (Auto) (NEGATIVE) /HPF Urine Mucus (Auto) (NEGATIVE) /HPF Urine Culture Reflexed (NO) Urine Glucose (NEGATIVE) mg/dL - Progress Progress: improved Air Movement: fair Progress Note: 06/05/21 16:30 She is given symptomatic treatment for cough along with breathing treatment and steroid, on reevaluation feeling much better. She is maintaining oxygen saturation with ambulation in the ER around 95%. Chest x-ray showed questionable infiltrative process on the right side, given a dose of Levaquin in here and will continue to go home. I believe patient has laryngotracheobronchitis which could be viral etiology with superimposed bacterial infection and will continue with steroids and Levaquin to go home. I have offered observation admission but she wants to go home, I think it is reasonable she is advised to return to ER for any worsening. Blood Culture(s) Obtained: Yes Antibiotics given: Yes Counseled pt/family regarding: lab results, diagnosis, need for follow-up, rad results - Departure Departure Disposition: Home Clinical Impression: Laryngotracheobronchitis Condition: Stable Critical Care Time: No [facility]errals[facility] [Primary Care Provider] - Follow up/PCP as directed COLT TAYLOR MD [ACTIVE STAFF] - Follow up/PCP as directed (In 2 days for reevaluation) Instructions: Shortness of Breath (Dyspnea) (DC) Additional Instructions: Take Tylenol/ibuprofen as needed for aches and pains. Drink plenty of fluids to keep yourself well-hydrated. Follow-up with primary care for reevaluation. Return to ER for any worsening. Prescriptions: Promethazine HCl 25 mg [Phenergan 25 mg] 25 mg PO Q8H PRN PRN #10 tablet PRN Reason: Vomiting Prednisone 20 mg [Deltasone 20 mg] 60 mg PO DAILY 5 Days #15 tablet Hydrocodone/Acetaminophen [Hydrocodone-Acetamin 2.5-108/5 ml Solution] 10 ml PO Q4-6HPRN PRN 3 Days #120 ml MDD 6 PRN Reason: Cough Levofloxacin [Levaquin 500 MG Tablet] 500 mg PO DAILY #7 tablet
[2021-06-05] MEDS ORDERED: Levofloxacin 250MG Tablet ONE (15:52)
[2021-06-05] MEDS: Levofloxacin 250MG Tablet PO ONE (15:53)
[2021-06-05 16:32] VITALS: BP 98/56; PULSE 84; O2SAT 96
== END 2021-06-05 16:58 | disposition home or self-care (01) ==
LOC: ED 13:59
DX: J40 Bronchitis, not specified as acute or chronic (principal); R50.9 Fever, unspecified; R05.9 Cough, unspecified; R51.9 Headache, unspecified; M79.10 Myalgia, unspecified site; J02.9 Acute pharyngitis, unspecified; I10 Essential (primary) hypertension; Z79.891 Long term (current) use of opiate analgesic; Z79.52 Long term (current) use of systemic steroids
CPT/HCPCS: 36000; 36415; 71045; 80053; 81001; 83605; 83735; 85025; 87040; 87086; 94760; 96360; 96374; 96375; 99284; J2405; J2930; A9270-GY

== ENCOUNTER 2021-06-09 12:56 | Observation (INO) | payer OTHER ==
[2021-06-09] MEDS ORDERED: DUONEB 0.5-3 MG/3 ml Neb IH ONE ×2 (13:21→14:25)
[2021-06-09] MEDS ORDERED: Zofran 4 MG/2 ML VIAL IV ONE (13:42)
[2021-06-09] MEDS ORDERED: Sodium Chloride 0.9% 1000 ML 1,000 ML IV STA (13:42)
[2021-06-09] MEDS ORDERED: PROTONIX 40 MG IV IV ONE ×2 (13:42→13:51)
[2021-06-09 13:51] LABS: Hematocrit 37.7 % (35-47); Hemoglobin 12.6 gm/dl (12.0-16.0); Mean Cell Volume 88.1 fl (78-100); Mean Corpuscular Hemoglobin 29.4 pg (26-32); Mean Corpuscular Hgb Concent. 33.4 g/dl (32-36); Mean Platelet Volume 10.5 fl (7.5-11.0); Platelet Count 251 K/mm3 (150-450); Red Blood Count 4.28 M/mm3 (4.1-5.4); Red Cell Distribution Width 13.2 % (11.5-14.0); White Blood Count 6.6 K/mm3 (4.0-10.5)
[2021-06-09] MEDS ORDERED: Sodium Chloride 0.9% 1000 ML 1,000 ML ONE (13:51)
[2021-06-09] MEDS ORDERED: Zofran 4 MG/2 ML VIAL ONE (13:51)
[2021-06-09 14:17] LABS: ALBUMIN 3.4 g/dL (3.5-5.0); ALKALINE PHOSPHATASE 64 U/L (38-126); ANION GAP 10.9 MEQ/L (5-15); BLOOD UREA NITROGEN 9 mg/dL (7-17); CHLORIDE 103 mmol/L (98-107); Calcium 8.2 mg/dL (8.4-10.2); Carbon Dioxide 28 mmol/L (22-30); Creatinine 1 0.69 mg/dL (0.52-1.04); EST GLOMERULAR FILTRATION RATE > 60.0 ML/MIN; Glucose 84 mg/dL (74-106); NT PRO BNP 496 pg/mL (0-900); Potassium 3.7 mmol/L (3.5-5.1); SGOT/AST 37 U/L (14-36); SGPT/ALT 70 U/L (0-35); SODIUM 139 mmol/L (137-145); Total Protein 6.1 g/dL (6.3-8.2)
[2021-06-09 14:28] LABS: Appearance CLEAR (CLEAR); Bilirubin NEGATIVE (NEGATIVE); Blood NEGATIVE Ery/ul (0-5); Epithelial Cells RARE /HPF (FEW); Glucose NEGATIVE (NEGATIVE); Ketones NEGATIVE (NEGATIVE); Leukocyte Esterase NEGATIVE (NEGATIVE); Mucus SLIGHT /HPF (NEGATIVE); Nitrite NEGATIVE (NEGATIVE); Protein,Urine Dip NEGATIVE (Negative); Specific Gravity 1.013 (1.005-1.025); Urobilinogen NEGATIVE mg/dL (0-1); WBC 0-2 /HPF (0-5)
[2021-06-09] MEDS ORDERED: PHENERGAN 25 MG PO ONE (15:23)
[2021-06-09] MEDS ORDERED: PHENERGAN 25 MG ONE (15:23)
--- NOTE | 2021-06-09 15:35 | ERPHSYRPT ---
- History of Present Illness Time Seen by Provider: 06/09/21 12:58 Source: patient Exam Limitations: no limitations Patient Subjective Stated Complaint: cough Triage Nursing Assessment: Patient ambulated back to ED and transferred self to bed. Patient A+O x3. Patient's skin pink, warm and dry. Patient complains of cough since 05/24/2021. Patient was dx with pneumonia on 06/05/2021 and prescribed atb and steroids. Patient complains of weakness and occasional abodminal pain. Lung clear a/p hayden. Physician History: 50 years old female presented in the ER with chief complaint of cough with some shortness of breath, abdominal pain nausea vomiting, decreased oral intake, feeling weak fatigued tired and lack of energy. Patient was evaluated in the ER a few days ago, was diagnosed with pneumonia on Levaquin and steroids but does not see much help. Denies any fever or chills. Patient oxygen saturation is around 91% while resting without any obvious distress. Complaining of abdominal pain especially on the left lower quadrant without any significant aggravating or relieving. Timing/Duration: week(s), gradual onset, worse Cough Quality/Degree: moderate, dry cough Possible Cause: unknown cause Modifying Factors: Worsens With: activity, coughing, deep breath Associated Symptoms: chest pain/soreness, cough, headache, muscle aches, nasal congestion, shortness of breath, sore throat Allergies/Adverse Reactions: prochlorperazine edisylate [From Compazine] Allergy (Severe, Verified 06/09/21 12:58) Tardive Dyskinesia cefprozil [From Cefzil] Allergy (Mild, Verified 06/09/21 12:58) Hives penicillin G Allergy (Mild, Verified 06/09/21 12:58) Hives Sulfa (Sulfonamide Antibiotics) [Sulfa(Sulfonamide Antibiotics)] Allergy (Mild, Verified 06/09/21 12:58) Hives Penicillins Allergy (Verified 06/09/21 12:58) prochlorperazine [From Compazine] Allergy (Verified 06/09/21 12:58) prochlorperazine maleate [From Compazine] Allergy (Verified 06/09/21 12:58) Home Medications: ALPRAZolam 0.25 MG [xanAX 0.25 MG] 0.25 mg PO HS PRN PRN 09/20/14 [History] Aspirin 81 gm Chew [Baby Aspirin 81 mg Chew] 81 mg PO HS 09/20/14 [History] Omeprazole Magnesium [Prilosec Otc] 40 mg PO HS 09/20/14 [History] Nebivolol HCl [Bystolic] 10 mg PO HS 04/06/15 [History] Chlorthalidone 25 mg PO DAILY 06/19/20 [History] Famotidine [Pepcid AC] 40 mg PO HS 06/19/20 [History] Hx Tetanus, Diphtheria Vaccination/Date Given: Yes Hx Influenza Vaccination/Date Given: Yes Hx Pneumococcal Vaccination/Date Given: No Immunizations Up to Date: Yes Travel Risk - International Travel Have you traveled outside of the country in past 3 weeks: No - Coronavirus Screening Are you exhibiting any of the following symptoms?: No Close contact with a COVID-19 positive Pt in past 14-21 Days: No - Vaccine Status Have you recieved a Covid-19 vaccination: Yes [employer]: [employer] - Vaccination Dates Date of 2cond Vaccination (if applicable): 09/2020 - Review of Systems Constitutional: Fatigue, Weakness Eyes: Photophobia Ears, Nose, & Throat: Throat Pain Respiratory: Cough, Dyspnea Cardiac: No Symptoms Abdominal/Gastrointestinal: Abdominal Pain, Nausea, Vomiting, Diarrhea Genitourinary Symptoms: No Symptoms Musculoskeletal: Myalgias Skin: No Symptoms Neurological: No Symptoms Psychological: No Symptoms Endocrine: No Symptoms Hematologic/Lymphatic: No Symptoms - Past Medical History Pertinent Past Medical History: Yes Neurological History: No Pertinent History ENT History: No Pertinent History Cardiac History: Hypertension Respiratory History: No Pertinent History Endocrine Medical History: No Pertinent History Musculoskeletal History: No Pertinent History GI Medical History: Irritable Bowel History: No Pertinent History Psycho-Social History: No Pertinent History Female Reproductive Disorders: No Pertinent History - Past Surgical History Past Surgical History: Yes Neuro Surgical History: No Pertinent History Cardiac: No Pertinent History Respiratory: No Pertinent History Gastrointestinal: Cholecystectomy Musculoskeletal: No Pertinent History Female Surgical History: Section, Tubal Ligation, Other Other Surgical History: d/cx2, 2 groshong placement,leep procedure x2 - Social History Smoking Status: Never smoker Exposure to second hand smoke: No Drug Use: none Patient Lives Alone: No Significant Family History: no pertinent family hx - Female History Hx Now: No - Nursing Vital Signs Nursing Vital Signs: Initial Vital Signs Temperature 98.0 F 06/09/21 13:01 Pulse Rate 73 06/09/21 13:01 Respiratory Rate 19 06/09/21 13:01 Blood Pressure 148/91 06/09/21 13:01 O2 Sat by Pulse Oximetry 95 06/09/21 13:01 Pain Scale Pain Intensity 0 - Physical Exam General Appearance: no apparent distress, alert Eye Exam: PERRL/EOMI, eyes nml inspection Ears, Nose, Throat Exam: moist mucous membranes, pharyngeal erythema Neck Exam: normal inspection, non-tender, supple, full range of motion Respiratory Exam: normal breath sounds, lungs clear Cardiovascular Exam: regular rate/rhythm, normal heart sounds Gastrointestinal/Abdomen Exam: soft, normal bowel sounds, tenderness (Left lower quadrant) Back Exam: normal inspection, normal range of motion Neurologic Exam: alert, oriented x 3, cooperative, desktop support technician II-XII nml as tested Skin Exam: normal color SpO2 Interpretation: normal SpO2: 97 O2 Delivery: Room Air - Course EKG Interpreted by Me: RATE (73), Sinus Rhythm, NORMAL AXIS, NORMAL INTERVALS, NORMAL QRS Ordered Tests: Active Orders 24 hr Category Date Time Status Access Service Representative STAT Care 06/09/21 13:21 Active EKG-ER Only STAT Care 06/09/21 13:42 Active IV Insertion STAT Care 06/09/21 13:42 Active NPO (ED) STAT Care 06/09/21 13:42 Active Oxygen-ED Only Nasal Cannula 2 lpm Care 06/09/21 13:21 Active ABDOMEN AND PELVIS W CONTRAST [CT] Stat Exams 06/09/21 13:43 Taken CHEST WITH CONTRAST [CT] Stat Exams 06/09/21 13:43 Taken BLOOD CULTURE Stat Lab 06/09/21 13:40 Received CBC W DIFF Stat Lab 06/09/21 13:40 Completed CMP Stat Lab 06/09/21 13:40 Completed Lactic Acid Stat Lab 06/09/21 14:25 Completed MAGNESIUM Stat Lab 06/09/21 13:40 Completed Manual Differential NC Stat Lab 06/09/21 13:40 Completed NT PRO BNP Stat Lab 06/09/21 13:40 Completed PROCALCITONIN Stat Lab 06/09/21 13:40 Completed UA W/RFX UR CULTURE Stat Lab 06/09/21 14:00 Completed Respiratory Therapy Assessment ONCE RT 06/09/21 14:30 Active Medication Summary Generic Name Dose Route Start Last Admin Trade Name Rafi PRN Reason Stop Dose Admin Azithromycin 500 mg in 250 mls @ 250 mls/hr 06/09/21 16:21 Zithromax 500 Mg/ 250 Ml Nacl Premix IV 06/09/21 17:20 STAT STA Discontinued Medications Generic Name Dose Route Start Last Admin Trade Name Rafi PRN Reason Stop Dose Admin Albuterol/Ipratropium 3 ml 06/09/21 13:21 06/09/21 14:30 Ipratropium/Albuterol Sulfate 3 Ml Ampul.Neb IH 06/09/21 13:22 3 ml STAT ONE Administration Albuterol/Ipratropium Confirm 06/09/21 14:25 Ipratropium/Albuterol Sulfate 3 Ml Ampul.Neb Administered 06/09/21 14:26 Dose 3 ml IH .STK-MED ONE Sodium Chloride 1,000 mls @ 999 mls/hr 06/09/21 13:42 06/09/21 15:08 Sodium Chloride 0.9% 1000 Ml IV 06/09/21 14:42 Infused .Q1H1M STA Infusion Sodium Chloride Confirm 06/09/21 13:51 Sodium Chloride 0.9% 1000 Ml Administered 06/09/21 13:52 Dose 1,000 mls @ ud .ROUTE .STK-MED ONE Ceftriaxone Sodium/Dextrose 2 g in 50 mls @ 100 mls/hr 06/09/21 16:21 06/09/21 16:36 Rocephin 2 Gm-D5w 50ml Bag IV 06/09/21 16:50 100 mls/hr STAT STA 100 mls/hr Administration Ceftriaxone Sodium/Dextrose Confirm 06/09/21 16:32 Rocephin 2 Gm-D5w 50ml Bag Administered 06/09/21 16:33 Dose 2 g in 50 mls @ ud IV .STK-MED ONE Ondansetron HCl 4 mg 06/09/21 13:42 06/09/21 13:55 Ondansetron Hcl 4 Mg/2 Ml Vial IV 06/09/21 13:43 4 mg STAT ONE Administration Ondansetron HCl Confirm 06/09/21 13:51 Ondansetron Hcl 4 Mg/2 Ml Vial Administered 06/09/21 13:52 Dose 4 mg .ROUTE .STK-MED ONE Pantoprazole Sodium 40 mg 06/09/21 13:42 06/09/21 13:55 Pantoprazole 40 Mg Vial IV 06/09/21 13:43 40 mg STAT ONE Administration Pantoprazole Sodium Confirm 06/09/21 13:51 Pantoprazole 40 Mg Vial Administered 06/09/21 13:52 Dose 40 mg IV .STK-MED ONE Promethazine HCl Confirm 06/09/21 15:23 Promethazine Hcl 25 Mg Tablet Administered 06/09/21 15:24 Dose 25 mg .ROUTE .STK-MED ONE Promethazine HCl 25 mg 06/09/21 15:23 06/09/21 15:24 Promethazine Hcl 25 Mg Tablet PO 06/09/21 15:24 25 mg STAT ONE Administration Lab/Rad Data: Laboratory Result Diagrams 06/09/21 13:40 06/09/21 13:40 Laboratory Results 06/09/21 06/09/21 06/09/21 Range/Units 14:25 14:00 13:40 WBC (4.0-10.5) K/mm3 RBC (4.1-5.4) M/mm3 Hgb (12.0-16.0) gm/dl Hct (35-47) % MCV (78-100) fl MCH (26-32) pg MCHC (32-36) g/dl RDW (11.5-14.0) % Plt Count (150-450) K/mm3 MPV (7.5-11.0) fl Segmented Neutrophils (36.0-66.0) % Lymphocytes (Manual) (24-44) % Monocytes (Manual) (0.0-12.0) % Platelet Estimate (NORMAL) RBC Morphology Sodium (137-145) mmol/L Potassium (3.5-5.1) mmol/L Chloride (98-107) mmol/L Carbon Dioxide (22-30) mmol/L Anion Gap (5-15) MEQ/L BUN (7-17) mg/dL Creatinine (0.52-1.04) mg/dL Estimated GFR ML/MIN Glucose (74-106) mg/dL Lactic Acid 1.5 (0.4-2.0) Calcium (8.4-10.2) mg/dL Magnesium (1.6-2.3) mg/dL Total Bilirubin (0.2-1.3) mg/dL AST (14-36) U/L ALT (0-35) U/L Alkaline Phosphatase (38-126) U/L NT-Pro-B Natriuret Pep (0-900) pg/mL Serum Total Protein (6.3-8.2) g/dL Albumin (3.5-5.0) g/dL Procalcitonin 0.156 H (0.030-0.080) ng/mL Urine Color YELLOW (YELLOW) Urine Appearance CLEAR (CLEAR) Urine pH 6.0 (5-6) Ur Specific [place] 1.013 (1.005-1.025) Urine Protein NEGATIVE (Negative) Urine Ketones NEGATIVE (NEGATIVE) Urine Blood NEGATIVE (0-5) Tray/ul Urine Nitrite NEGATIVE (NEGATIVE) Urine Bilirubin NEGATIVE (NEGATIVE) Urine Urobilinogen NEGATIVE (0-1) mg/dL Ur Leukocyte Esterase NEGATIVE (NEGATIVE) Urine WBC (Auto) 0-2 (0-5) /HPF Urine RBC (Auto) NONE (0-2) /HPF U Epithel Cells (Auto) RARE (FEW) /HPF Urine Bacteria (Auto) NONE (NEGATIVE) /HPF Urine Mucus (Auto) SLIGHT (NEGATIVE) /HPF Urine Culture Reflexed NO (NO) Urine Glucose NEGATIVE (NEGATIVE) mg/dL 06/09/21 06/09/21 Range/Units 13:40 13:40 WBC 6.6 (4.0-10.5) K/mm3 RBC 4.28 (4.1-5.4) M/mm3 Hgb 12.6 (12.0-16.0) gm/dl Hct 37.7 (35-47) % MCV 88.1 (78-100) fl MCH 29.4 (26-32) pg MCHC 33.4 (32-36) g/dl RDW 13.2 (11.5-14.0) % Plt Count 251 (150-450) K/mm3 MPV 10.5 (7.5-11.0) fl Segmented Neutrophils 59 (36.0-66.0) % Lymphocytes (Manual) 34 (24-44) % Monocytes (Manual) 7 (0.0-12.0) % Platelet Estimate NORMAL (NORMAL) RBC Morphology NORMAL Sodium 139 (137-145) mmol/L Potassium 3.7 (3.5-5.1) mmol/L Chloride 103 (98-107) mmol/L Carbon Dioxide 28 (22-30) mmol/L Anion Gap 10.9 (5-15) MEQ/L BUN 9 (7-17) mg/dL Creatinine 0.69 (0.52-1.04) mg/dL Estimated GFR > 60.0 ML/MIN Glucose 84 (74-106) mg/dL Lactic Acid (0.4-2.0) Calcium 8.2 L (8.4-10.2) mg/dL Magnesium 2.0 (1.6-2.3) mg/dL Total Bilirubin 0.70 (0.2-1.3) mg/dL AST 37 H (14-36) U/L ALT 70 H (0-35) U/L Alkaline Phosphatase 64 (38-126) U/L NT-Pro-B Natriuret Pep 496 (0-900) pg/mL Serum Total Protein 6.1 L (6.3-8.2) g/dL Albumin 3.4 L (3.5-5.0) g/dL Procalcitonin (0.030-0.080) ng/mL Urine Color (YELLOW) Urine Appearance (CLEAR) Urine pH (5-6) Ur Specific [place] (1.005-1.025) Urine Protein (Negative) Urine Ketones (NEGATIVE) Urine Blood (0-5) Tray/ul Urine Nitrite (NEGATIVE) Urine Bilirubin (NEGATIVE) Urine Urobilinogen (0-1) mg/dL Ur Leukocyte Esterase (NEGATIVE) Urine WBC (Auto) (0-5) /HPF Urine RBC (Auto) (0-2) /HPF U Epithel Cells (Auto) (FEW) /HPF Urine Bacteria (Auto) (NEGATIVE) /HPF Urine Mucus (Auto) (NEGATIVE) /HPF Urine Culture Reflexed (NO) Urine Glucose (NEGATIVE) mg/dL - Progress Progress: improved Air Movement: good Progress Note: 06/09/21 16:55 She is given fluid bolus and symptomatic treatment for nausea. Has normal white count, grossly unremarkable chemistries and normal lactate but has a procalcitonin of 0.15. CTA negative for pulmonary embolism but does have pneumonitis, patient has outpatient treatment failure, started on Rocephin and Zithromax. CT abdomen pelvis negative. Discussed with Dr. Bautista and patient is accepted for admission Blood Culture(s) Obtained: Yes Antibiotics given: Yes Discussed with : Zach Will see patient in: hospital (observation) Counseled pt/family regarding: lab results, diagnosis, rad results - Departure Departure Disposition: Observation Clinical Impression: Pneumonia, Nausea & vomiting Condition: Stable Critical Care Time: No Referrals: Provider,Unknown [Primary Care Provider] - Follow up/PCP as directed
[2021-06-09 15:42] LABS: Lymphocytes 34 % (24-44); Monocyte 7 % (0.0-12.0); Neutrophils 59 % (36.0-66.0); Total Cells Counted 100
[2021-06-09 15:43] LABS: Platelet Estimate NORMAL (NORMAL)
[2021-06-09] MEDS ORDERED: Zithromax 500 MG/ 250 ML NaCl Premix 500 MG/250 ML IVPB IV STA (16:21)
[2021-06-09] MEDS ORDERED: ROCEPHIN 2 Gm-D5w 50ML BAG** 2 G/50 ML IVPB IV STA ×2 (16:21→18:05)
[2021-06-09] MEDS ORDERED: ROCEPHIN 2 Gm-D5w 50ML BAG** 2 G/50 ML IVPB IV ONE (16:32)
[2021-06-09] MEDS ORDERED: Zithromax 500 MG/ 250 ML NaCl Premix 500 MG/250 ML IVPB IV ONE (17:17)
[2021-06-09 17:40] LABS: INFLUENZA A NEGATIVE (NEGATIVE); INFLUENZA B NEGATIVE (NEGATIVE); RESPIRATORY SYNCTIAL VIRUS NEGATIVE (Negative); SARS-CoV-2 Xpert Express NEGATIVE (NEGATIVE)
[2021-06-09] MEDS ORDERED: TYLENOL 325 MG PO PRN (18:05)
[2021-06-09] MEDS ORDERED: MORPHINE SULFATE 2 MG INJ IV PRN (18:05)
[2021-06-09] MEDS: Sodium Chloride 0.9% 1000 ML 1,000 ML IV SCH (18:25)
[2021-06-09] MEDS: DUONEB 0.5-3 MG/3 ml Neb IH SCH (19:29)
--- NOTE | 2021-06-09 19:47 | XRAY ---
Indication: Cough. Pulmonary embolus. Multiple contiguous axial images obtained through the chest using 80 cc Isovue 370 contrast and PE protocol. Comparison: None There is good opacification of the pulmonary arteries to include the lobar and segmental branches. No pulmonary embolus. Heart is not enlarged. Aorta is normal in course and caliber. No pathologic mediastinal/hilar lymphadenopathy. Lungs demonstrates right lower lobe groundglass airspace disease without effusion. Incidental small left lower lobe calcified granuloma. Bony thorax intact. CT abdomen/pelvis reported separately. Impression: 1. Negative pulmonary embolus. 2. Right lower lobe pneumonia. Comment: Preliminary interpretation made by [facility]. No critical discrepancy.
--- NOTE | 2021-06-09 19:51 | XRAY ---
Indication: Vomiting. Multiple contiguous axial images obtained through the abdomen and pelvis using 80 cc Isovue 370 contrast. Comparison: August 20, 2018. CT chest reported separately. Noncontrasted stomach and bowel loops are nonobstructed. Normal appendix. Again cholecystectomy. No free fluid/air. Spleen remains enlarged measuring 14 cm. Remaining liver, pancreas, spleen, adrenal glands, kidneys, ureters, bladder, uterus, and aorta are unremarkable. No pathologic retroperitoneal lymphadenopathy. Osseous structures intact. Impression: 1. Again splenomegaly. 2. Remaining CT abdomen/pelvis with contrast exam is again negative Comment: Preliminary interpretation made by [facility]. No critical discrepancy.
[2021-06-09] MEDS: Tessalon Perles 100 MG PO PRN (20:11)
[2021-06-09] MEDS ORDERED: xanAX 0.25 MG PO PRN (20:24)
[2021-06-09] MEDS ORDERED: HYDROCODONE-ACETAMIN 2.5-108/5 ML SOLUTION PO PRN (20:27)
[2021-06-09] MEDS ORDERED: PHENERGAN 25 MG PO PRN (20:29)
[2021-06-09] MEDS ORDERED: BABY ASPIRIN 81 MG CHEW PO SCH (22:00)
[2021-06-09] MEDS: Pepcid 20 MG PO SCH (23:12)
[2021-06-09] MEDS: Bystolic 5 MG PO SCH (23:12)
[2021-06-09] MEDS: Protonix 40MG Tablet PO SCH (23:14)
[2021-06-10] MEDS: DUONEB 0.5-3 MG/3 ml Neb IH SCH ×4 (01:37→20:00)
[2021-06-10] MEDS: Sodium Chloride 0.9% 1000 ML 1,000 ML IV SCH ×3 (04:03→23:09)
[2021-06-10 06:48] LABS: Hematocrit 34.8 % (35-47); Hemoglobin 11.6 gm/dl (12.0-16.0); Mean Cell Volume 89.2 fl (78-100); Mean Corpuscular Hemoglobin 29.7 pg (26-32); Mean Corpuscular Hgb Concent. 33.3 g/dl (32-36); Mean Platelet Volume 9.4 fl (7.5-11.0); Platelet Count 225 K/mm3 (150-450); Red Cell Distribution Width 13.2 % (11.5-14.0); White Blood Count 5.6 K/mm3 (4.0-10.5)
[2021-06-10 07:09] LABS: ALBUMIN 3.1 g/dL (3.5-5.0); ALKALINE PHOSPHATASE 53 U/L (38-126); ANION GAP 7.7 MEQ/L (5-15); BLOOD UREA NITROGEN 6 mg/dL (7-17); CHLORIDE 105 mmol/L (98-107); Calcium 7.7 mg/dL (8.4-10.2); Carbon Dioxide 30 mmol/L (22-30); Creatinine 1 0.75 mg/dL (0.52-1.04); EST GLOMERULAR FILTRATION RATE > 60.0 ML/MIN; Glucose 96 mg/dL (74-106); Potassium 3.2 mmol/L (3.5-5.1); SGOT/AST 24 U/L (14-36); SGPT/ALT 50 U/L (0-35); SODIUM 139 mmol/L (137-145); Total Protein 5.8 g/dL (6.3-8.2)
[2021-06-10] MEDS ORDERED: DUONEB 0.5-3 MG/3 ml Neb IH ONE (07:19)
[2021-06-10] MEDS: Zofran 4 MG/2 ML VIAL IV PRN ×2 (07:38→16:03)
[2021-06-10 08:00] LABS: Lymphocytes 27 % (24-44); Monocyte 3 % (0.0-12.0); Neutrophils 70 % (36.0-66.0); Total Cells Counted 100
[2021-06-10 08:01] LABS: Platelet Estimate NORMAL (NORMAL)
[2021-06-10] MEDS ORDERED: PROVENTIL 2.5 MG/3 ML NEB IH PRN (09:06)
[2021-06-10] MEDS ORDERED: MEDICATION INTERVENTION MC SCH (09:15)
[2021-06-10] MEDS ORDERED: PROTONIX 40 MG IV IV SCH (10:00)
[2021-06-10] MEDS ORDERED: CHLORTHALIDONE 25 MG PO SCH (10:00)
[2021-06-10] MEDS ORDERED: Zithromax 500 MG/ 250 ML NaCl Premix 500 MG/250 ML IVPB IV SCH ×2 (10:00)
[2021-06-10] MEDS ORDERED: ENOXAPARIN SODIUM SQ SCH (10:00)
[2021-06-10] MEDS: Tessalon Perles 100 MG PO PRN (18:31)
[2021-06-10] MEDS: Bystolic 5 MG PO SCH (21:50)
[2021-06-10] MEDS: Protonix 40MG Tablet PO SCH (21:51)
[2021-06-10] MEDS: Pepcid 20 MG PO SCH (21:51)
[2021-06-10] MEDS ORDERED: ECOTRIN 81 MG PO SCH (22:00)
[2021-06-11] MEDS: DUONEB 0.5-3 MG/3 ml Neb IH SCH ×4 (01:44→19:04)
[2021-06-11] MEDS: Zofran 4 MG/2 ML VIAL IV PRN (07:42)
[2021-06-11] MEDS ORDERED: xanAX 0.25 MG PO PRN (08:01)
[2021-06-11] MEDS ORDERED: ZOFRAN ODT 4 MG PO PRN (08:43)
[2021-06-11] MEDS: Sodium Chloride 0.9% 1000 ML 1,000 ML IV SCH (10:00)
--- NOTE | 2021-06-11 12:55 | HP ---
CHIEF COMPLAINT: Nausea, vomiting, history of pneumonia. HISTORY OF PRESENT ILLNESS: The patient had a visit to the emergency room on 06/05/2021 at which time she was prescribed Levaquin and steroid medication. The patient reported that the steroids made her feel like she was losing her mind and she was not seeing any improvement and at this point is just sick and tired of being sick and tired. She presented to the emergency room where the patient was felt the need to be admitted to the hospital for IV fluids and antibiotics. She was given Rocephin and Zithromax in the emergency room and discontinued on the Levaquin. PAST MEDICAL/SURGICAL HISTORY: Otherwise significant for irritable bowel. She has had a cholecystectomy, section, tubal ligation. She had a LEEP procedure and had Groshong catheter placed before. MEDICATIONS: She presently takes Alprazolam 0.25 mg q.h.s. PRN for sleep and on aspirin 81 mg a day, Prilosec 40 mg a day, Bystolic 10 mg at night, Chlorthalidone 25 mg a day, Pepcid AC at night. ALLERGIES: COMPAZINE. CEFZIL. PENICILLIN. SULFA. PHYSICAL EXAMINATION: Revealed a well-nourished, well-developed 50 -year-old white female in no obvious distress. VITAL SIGNS: The patient's vital signs in the emergency room showed temperature 98.0F, pulse 73, respiratory rate 19 and blood pressure 148/91. O2 saturation 95%. She was noted to be somewhat lower than that in the emergency room initially down to about 91% but is 97% on O2 at the time she was admitted to the hospital child and this morning continued to also be at that rate. HEENT: Normocephalic, atraumatic. Pupils equal round reactive to light. Extraocular movements intact. Oropharynx is pink and moist. She is not on supplemental oxygen presently. NECK: Supple without lymphadenopathy, thyromegaly or JVD. CHEST: Clear to auscultation. HEART: Regular rate and rhythm without murmurs, rubs or gallops. ABDOMEN: Soft. No palpable masses. EXTREMITIES: Without cyanosis, clubbing or edema. NEUROLOGIC: The patient is alert and oriented x3. No focal deficits were noted. LAB DATA AND TESTS: This morning her white count is 5.6, hemoglobin 11.6, PLT count 225,000. On the day of admission, her CBC was entirely normal. Differential showed 59% neutrophils and 34% lymphocytes. UA was essentially normal. Specific gravity was 1.013. Lactic acid is 1.5. She was negative for COVID, influenza and respiratory syncytial virus. Her procalcitonin was slightly elevated at 0.156. Her metabolic panel was grossly normal as well other than slight elevation of liver enzymes at 37. Yesterday, ALT was 70 with normal 0-35. ProBNP level was checked and it was normal. EKG appeared to be essentially normal as well. ASSESSMENT: A patient with nausea. She has been placed in the hospital for IV fluids. The emergency room doctor gave her Rocephin and Zithromax which were discontinued today as I do not believe this is bacterial. We will ask for a consultation from Dr. Gavino Gannon to help us with the issues about her potential history of pneumonia and where to go from here as she was negative for essentially everything checked. It does appear to be more likely to be viral at this point. The patient will be allowed to discharge home if she is able to take fluids well with no additional medication treatment with suggestion that she follow with Dr. Gannon as an outpatient otherwise.
[2021-06-11] MEDS: Tessalon Perles 100 MG PO PRN (14:24)
--- NOTE | 2021-06-11 15:00 | CONS ---
CONSULT DATE: 06/10/2021 HISTORY: Margaret Stacy is a 50-year-old woman with no previous pulmonary problems other than history of COVID in June 2020, who has been sick since May 24, 2021. The patient reported started developing cough along with GI symptoms. She initially was treated with [id number] medication without much clinical improvement. She was started on steroids and antibiotics on 06/05/2021. 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 Her symptoms got worse leading to an emergency room visit and hospitalization. A chest x-ray and CT chest were obtained on admission. The official report is pending. However, I have personally reviewed the CT scan. It appears to show pneumonitis changes involving right lower lobe. The patient's white count has remained normal. She has low grade fever. There is no evidence of desaturation as well. She does report improvement in her symptoms with symptomatic therapy. PAST MEDICAL HISTORY: Positive for history hypertension, gastroesophageal reflux disease and anxiety. PAST SURGICAL HISTORY: No recent surgery. PERSONAL AND SOCIAL HISTORY: She is a nonsmoker. MEDICATIONS: Home and current medications are reviewed. ALLERGIES: ALLERGIES NOTED. PHYSICAL EXAMINATION: This is a middle aged woman who appears comfortable, able to carry out a conversation without significant short of breath. Vital signs are noted. HEENT: Normocephalic. Pupils are reactive. Oral exam is limited. CVS: First and second heart sounds are normal, regular, rhythmic. RESPIRATORY: Shows diminished breath sounds, occasional rhonchi are heard at lung bases. ABDOMEN: Soft. EXTREMITIES: No edema is noted. LABORATORY DATA AND TESTS: Sodium 139, potassium 3.2, chloride 105, bicarb 30, glucose 96, BUN 6, creatinine 0.7. White count 5.6, hemoglobin 11.6, hematocrit 35, PLT 225,000. Chest x-ray noted. CT reviewed. ASSESSMENT: This is a 50-year-old woman admitted with: Bronchitis-like symptoms, is noted to have pneumonitis features on CT scan. The patient has tested negative for COVID x4 in the recent past although the CT findings are somewhat typical for COVID pneumonitis. The patient does have history of June 2020 and subsequently was vaccinated with Moderna vaccine in August and September 2020. At this point she has improved with symptomatic therapy and most importantly her white count remains normal without evidence of desaturation. RECOMMENDATIONS: 1) I agree with present treatment. The patient has improved with symptomatic therapy. She is hesitant about taking steroids. I believe the patient would benefit from inhaled bronchodilators with steroids and would recommend Breo 200 one puff once a day upon discharge. 2) Advised to take symptomatic treatment with Tessalon Perles. Her GI symptoms have also improved for the time being. A follow up CT in about six weeks would be advised along with pulmonary function as outpatient. I have advised her to follow up with me in two weeks upon discharge. If any questions remain unanswered, please feel free to contact me. Thank you for allowing me to participate in the care of this patient.
[2021-06-11 15:48] VITALS: BP 136/69
[2021-06-11 21:10] VITALS: PULSE 80; O2SAT 94
[2021-06-12 09:10] LABS: Adenovirus Not Detected (Not Detected); Bordetella pertussis Not Detected (Not Detected); Chlamydophila pneumoniae Not Detected (Not Detected); Coronavirus 229E Not Detected (Not Detected); Coronavirus HKU1 Not Detected (Not Detected); Coronavirus NL63 Not Detected (Not Detected); Coronavirus OC43 Not Detected (Not Detected); Human Metapneumovirus Not Detected (Not Detected); Human Rhinovirus/Enterovirus Not Detected (Not Detected); Influenza A Not Detected (Not Detected); Influenza A/H1 Not Detected (Not Detected); Influenza A/H1-2009 Not Detected (Not Detected); Influenza A/H3 Not Detected (Not Detected); Influenza B Not Detected (Not Detected); Parainfluenza 1 Not Detected (Not Detected); Parainfluenza 2 Not Detected (Not Detected); Parainfluenza 3 Not Detected (Not Detected); Parainfluenza 4 Not Detected (Not Detected); Respiratory Syncytial Virus Not Detected (Not Detected)
[2021-06-12 09:37] LABS: Mycoplasma pneumoniae Not Detected (Not Detected)
== END 2021-06-11 19:40 | disposition home or self-care (01) ==
LOC: ED 12:56 → MED SURG 17:57
PROVIDERS: ADMIT Family Medicine; ATTEND Family Medicine
DX: J18.9 Pneumonia, unspecified organism (principal); R11.2 Nausea with vomiting, unspecified; R50.9 Fever, unspecified; I10 Essential (primary) hypertension; K21.9 Gastro-esophageal reflux disease without esophagitis; Z86.16 Personal history of COVID-19; Z20.828 Contact with and (suspected) exposure to other viral communicable diseases; Z79.899 Other long term (current) drug therapy
CPT/HCPCS: 0241U; 36000; 36415; 71260; 74177; 80053; 81001; 83605; 83735; 83880; 84145; 85025; 87040; 87633; 93005; 93041; 94640; 94760; 96360; 96365; 96374; 96375; 99285; G0378; 0097U; J0456; J0696; J2405; 0100U; A9270-GY